=== PATIENT | male | born 1965 | race African-American/Black ===

== ENCOUNTER 2024-11-06 12:14 | Emergency (ER) | payer MEDICAID ==
[~2024-11-06] VITALS: Ht 172.7 cm; Wt 72.6 kg
[2024-11-06 12:18] VITALS: O2SAT 99
[2024-11-06 12:29] VITALS: BP 132/88; PULSE 68; RESP 14; TEMP 36.8; O2SAT 100
[2024-11-06] MEDS ORDERED: DIPHENHYDRAMINE 50MG CAPSULE PO ONE (13:15)
[2024-11-06] MEDS: PREDNISONE 20MG TABLET PO ONE (13:25)
[2024-11-06] MEDS: DIPHENHYDRAMINE 25MG CAPSULE PO SCH (13:25)
[2024-11-06 13:37] LABS: BASOPHILS % 1.2 % (0.0-2.0); EOSINOPHILS % 2.0 % (0.0-5.0); HEMATOCRIT. 37.9 % (42.0-52.0); HEMOGLOBIN. 12.5 g/dL (14.0-18.0); LYMPHOCYTES % 20.2 % (20.0-50.0); MEAN PLATELET VOLUME 8.2 fl (7.4-10.4); MONOCYTES % 9.4 % (2.0-8.0); NEUTROPHILS % 67.2 % (40.0-76.0); PLATELET 232 x1000/uL (130-400); RED BLOOD CELL COUNT 4.55 mill/uL (4.7-6.1); RED CELL DISTRIBUTION WIDTH 14.3 % (11.6-14.6)
[2024-11-06 13:55] LABS: CREATININE 1.2 mg/dL (0.6-1.3); UREA NITROGEN BLOOD 13 mg/dL (9-23)
== END 2024-11-06 15:12 | disposition home or self-care (01) ==
LOC: ER 12:14
DX: T63.481A Toxic effect of venom of other arthropod, accidental (unintentional), initial encounter (principal); D64.9 Anemia, unspecified; Z88.0 Allergy status to penicillin; X58.XXXA Exposure to other specified factors, initial encounter
CPT/HCPCS: 99284; 80048; 85025; 36415; 93005; Q0163; J7512